=== PATIENT | male | born 1990 | race Asian ===

== ENCOUNTER 2019-10-06 07:55 | Emergency (ER) | payer OTHER ==
[2019-10-06 08:04] VITALS: BP 125/74; PULSE 86; TEMP 98.2; BMI 21.4
[2019-10-06] MEDS ORDERED: KETOROLAC TROMETHAMINE 30 MG/1 ML VIAL IM ONE (08:16)
--- NOTE | 2019-10-06 08:16 | PDOC ---
History of Present Illness - General Chief Complaint: Pain, Acute Stated Complaint: LEFT KNEE PAIN Time Seen by Provider: 10/06/19 08:07 - History of Present Illness Initial Comments: 10/06/19 08:10 CHIEF COMPLAINT: left knee pain HISTORY OF PRESENT ILLNESS: 29 yo M with no significant PMH presents to fast track with pain to left knee x 1 month. Patient does not remember any fall or trauma prior to onset of pain. Patient reports pain to be worse with flexion of knee and relief with extension of L leg. Patient states the pain has worsened over the last month and now can no longer keep his knee bent for longer than a few minutes prior to severe pain. 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 No recent travel or sick contacts. PAST MEDICAL HISTORY: Denies past medical history FAMILY HISTORY: Denies SOCIAL HISTORY: Occupation: manager contracting. Marijuana use. Denies tobacco, alcohol, other illicit drug use. SURGICAL HISTORY: Denies ALLERGIES: No known drug allergies REVIEW OF SYSTEMS General/Constitutional: Denies fever or chills. Denies weakness, weight change. HEENT: Denies change in vision. Denies ear pain or discharge. Denies sore throat. Cardiovascular: Denies chest pain or shortness of breath. Respiratory: Denies cough, wheezing, or hemoptysis. Gastrointestinal: Denies nausea, vomiting, diarrhea or constipation. Denies rectal bleeding. Genitourinary: Denies dysuria, frequency, or change in urination. Musculoskeletal: Left knee pain x 1 month. Skin and breasts: Denies rash or easy bruising. Neurologic: Denies headache, vertigo, loss of consciousness, or loss of sensation. Psychiatric: Denies depression or anxiety. PHYSICAL EXAM General Appearance: Well-appearing, appropriately dressed. No apparent distress , no intoxication. HEENT: EOMI, PERRLA, normal ENT inspection, normal voice, TMs normal, pharynx normal. No conjunctival pallor. No photophobia, scleral icterus. Neck: Supple. Trachea midline. No tenderness, rigidity, carotid bruit, stridor , lymphadenopathy, or thyromegaly. Respiratory/Chest: Lungs CTAB. No shortness of breath, chest tenderness, respiratory distress, accessory muscle use. No crackles, rales, rhonchi, stridor , wheezing, dullness Cardiovascular: RRR. S1, S2. No JVD, murmur, bradycardia, tachycardia. Vascular Pulses: Dorsalis-Pedis (R): 2+, Dorsalis-Pedis (L): 2+ Gastrointestinal/Abdominal: Normal bowel sounds. Abdomen soft, non-distended. No tenderness or rebound tenderness. No organomegaly, pulsatile mass, guarding , hernia, hepatomegaly, splenomegaly. Lymphatic: No adenopathy, tenderness. Musculoskeletal/Extremities: +varus stress test, negative valgus stress test. Fully ambulatory, full ROM to left knee and leg. FROM of all extremities, normal capillary refill. Pelvis Stable. No CVA tenderness. No tenderness to extremities, pedal edema, swelling, erythema or deformity. Integumentary: Appropriate color, dry, warm. No cyanosis, erythema, jaundice or rash Neurologic: finishing technician II-XII intact. Fully oriented, alert. Appropriate mood/affect. Motor strength 5/5. No appreciable EOM palsy, facial droop or sensory deficit. Past History - Past Medical History Allergies/Adverse Reactions: Allergies Allergy/AdvReac Type Severity Reaction Status Date / Time No Known Allergies Allergy Verified 10/06/19 08:00 Home Medications: Ambulatory Orders Naproxen 500 mg PO BID #20 tablet. 10/06/19 CVA: No COPD: No CHF: No DVT: No Dementia: No Diabetes: No - Immunization History Immunization Up to Date: No - Psycho Social/Smoking Cessation Hx Smoking History: Never smoked Information on smoking cessation initiated: No Drug/Substance Use Hx: Yes (MARIJUANA) *Physical Exam - Vital Signs Last Vital Signs Temp Pulse Resp BP Pulse Ox 98.2 F 86 17 125/74 98 10/06/19 08:00 10/06/19 08:00 10/06/19 08:00 10/06/19 08:00 10/06/19 08:00 Medical Decision Making - Medical Decision Making 10/06/19 08:40 29 yo M with no significant PMH presents to fast track with pain to left knee x 1 month. -xray -toradol x-ray negative. NSAIDS, f/u with ortho. Advised patient to take medication as prescribed and follow up with ortho if symptoms persist. Advised patient of signs and symptoms for return to ED. Patient verbalized understanding and agrees to plan. Discharge - Discharge Information Problems reviewed: Yes Clinical Impression/Diagnosis: Strain of ligament Condition: Stable Disposition: HOME - Admission No - Additional Discharge Information Prescriptions: Naproxen 500 mg PO BID #20 tablet.dr - Follow up/Referral Referrals: Mian Martinez MD [Staff Physician] - - Patient Discharge Instructions Patient Printed Discharge Instructions: DI for Ligament Sprains Additional Instructions: Please take medication as prescribed. As discussed, if your symptoms do not improve in 7-10 days, please follow up with an orthopedics for further evaluation and a possible MRI or physical therapy. If you experience any loss of sensation to your extremities, any swelling or increased pain to your leg, please return to the ER. - Post Discharge Activity Work/Back to School Note: Back to Work
[2019-10-06] MEDS ORDERED: KETOROLAC TROMETHAMINE 30 MG/1 ML VIAL ONE (08:17)
== END 2019-10-06 09:05 | disposition home or self-care (01) ==
LOC: JERFT 07:55
PROC: 3E0233Z Introduction of Anti-inflammatory into Muscle, Percutaneous Approach (ICD-10-PCS; principal; 2019-10-06)
DX: S83.92XA Sprain of unspecified site of left knee, initial encounter (principal); X58.XXXA Exposure to other specified factors, initial encounter; Y93.9 Activity, unspecified; Y92.9 Unspecified place or not applicable
CPT/HCPCS: 73562-TC-LT-FY; 99282-25